=== PATIENT | female | born 1950 | race Caucasian/White ===

== ENCOUNTER 2024-02-23 13:34 | Emergency (ER) | payer MEDICARE, OTHER ==
[~2024-02-23] VITALS: Ht 160 cm; Wt 82.6 kg
[~2024-02-23 13:34] MED LIST: LISINOPRIL-HCT1 EACH PO; OMEPRAZOLE20 MG PO; WARFARIN SODIUM5 MG PO; XARELTO15 MG PO
[2024-02-23] MEDS ORDERED: CYCLOBENZAPRINE10 MG PO (16:14)
[2024-02-23 16:26] VITALS: BP 131/86
== END 2024-02-23 16:26 | disposition home or self-care (01) ==
LOC: ED 13:34
DX: M79.651 Pain in right thigh (principal); I10 Essential (primary) hypertension; K21.9 Gastro-esophageal reflux disease without esophagitis; Z86.711 Personal history of pulmonary embolism; Z79.899 Other long term (current) drug therapy
CPT/HCPCS: 72100; 73552; 99283

== ENCOUNTER 2024-03-10 11:13 | Emergency (ER) | payer MEDICARE, OTHER ==
[~2024-03-10] VITALS: Ht 160 cm; Wt 82.6 kg
[~2024-03-10 11:13] MED LIST changes: +CYCLOBENZAPRINE10 MG PO
--- OUTSIDE RECORDS SUMMARY | 2024-03-10 11:21 | XMS ---
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 Olu VISIT COUNT (12 MO.) [address] NOTE: Visits indicate total known visits. ED/UCC VISIT TRACKING (12 MO.) 03/10/2024 11:14 [facility] TYPE: Emergency COMPLAINT: - COLD/FLU SYMPTOMS, COUGH, CHEST PAIN 02/23/2024 13:34 [facility] TYPE: Emergency COMPLAINT: - RT LEG PAIN DIAGNOSES: - Essential (primary) hypertension - Gastro-esophageal reflux disease without esophagitis - Other residential (current) drug therapy - Pain in right thigh - Personal history of pulmonary embolism 09[facility]23/2023 09:11 [facility]: [facility] DIAGNOSES: - Other pulmonary embolism without acute cor pulmonale - Abdominal Pain INPATIENT VISIT TRACKING (12 MO.) No inpatient visits to display in this time frame [id number]
[2024-03-10 12:12] LABS: BASOPHILS 0.6 % (0-2); EOSINOPHILS 0.8 % (0-6); HEMATOCRIT 40.5 % (35.0-50.0); HEMOGLOBIN 13.5 g/dL (12.0-18.0); LYMPHOCYTES 15.2 % (24-44); MCH 29.6 (27-36); MCHC 33.3 g/dl (30-36); MCV 88.6 fl (81-99); MONOCYTES 6.6 % (0-12); NEUTROPHILS 76.8 % (39-80); PLATELET COUNT 253 K/uL (140-440); RBC 4.57 M/ul (4.3-5.7); RDW 13.9 (10.5-15.0)
[2024-03-10 12:22] LABS: INFLUENZA B NAA NEGATIVE (NEGATIVE); RESPIRATORY SYNCYTIAL VIR NAA NEGATIVE (NEGATIVE)
[2024-03-10 12:32] LABS: ALBUMIN 3.4 g/dL (3.4-5.0); ALBUMIN/GLOBULIN RATIO 0.87 (1.1-2.4); ANION GAP 11.5 (7-21); BILIRUBIN, TOTAL 0.5 ng/dL (0.2-1.0); BUN/CREATININE RATIO 8.6 (6.0-28.6); CALCIUM 9.8 mg/dL (8.5-10.1); CREATININE, SERUM 0.93 mg/dL (0.55-1.02); POTASSIUM 3.5 mmol/L (3.5-5.1); PROTEIN, TOTAL 7.3 g/dL (6.4-8.2)
[2024-03-10 12:55] VITALS: BP 142/97
--- NOTE | 2024-03-12 14:56 | EKG ---
[facility] [address] [place], [place] [address] Signed Normal sinus rhythm Normal ECG No previous ECGs available Confirmed by Joy Miller MD ([id number]) on 03/12/2024 2:56:17 PM Electronically Signed By: JOY MILLER MD 03/12/24 1456 PATIENT NAME: XUAN CALVILLO Electrocardiogram DATE OF : 46 PHYSICIAN: JOY MILLER MD REPORT #: [id number] REPORT IS CONFIDENTIAL AND NOT TO BE RELEASED WITHOUT AUTHORIZATION
== END 2024-03-10 12:45 | disposition home or self-care (01) ==
LOC: ED 11:13
PROVIDERS: Emergency Medicine
DX: J11.1 Influenza due to unidentified influenza virus with other respiratory manifestations (principal); I10 Essential (primary) hypertension; K21.9 Gastro-esophageal reflux disease without esophagitis; Z79.899 Other long term (current) drug therapy
CPT/HCPCS: 36415; 71045; 80053; 83690; 83880; 84484; 85025; 87502; 93005; 93010; 99285-25; U0002